=== PATIENT | female | born 1980 | race Caucasian/White ===

== ENCOUNTER 2017-05-24 04:12 | Emergency (ER) | payer BC, OTHER ==
[2017-05-24 04:36] VITALS: TEMP 97.7
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
[2017-05-24 06:48] VITALS: O2SAT 99
[2017-05-24 06:52] VITALS: BP 125/89
== END 2017-05-24 06:58 | disposition home or self-care (01) ==
LOC: ER 04:12
DX: O20.0 Threatened abortion (principal); O9A.311 Physical abuse complicating pregnancy, first trimester; Z3A.11 11 weeks gestation of pregnancy

== ENCOUNTER → 2017-05-27 | Outpatient (CLI) | payer BC, OTHER ==
--- NOTE | 2017-05-27 17:05 | US ---
EXAM DESCRIPTION: OB ,Early (0-14wks): Ultrasound. CLINICAL HISTORY: Positive test. By LMP, EGA 12 weeks, 0 days. ROGERS 12/09/2017. COMPARISON: None. TECHNIQUE: Transpelvic scanning through the urine filled bladder: 2-dimensional and Doppler modes. FINDINGS: Uterus: Well-defined. Not retroverted. Gestational sac: [place] not measured. AFV: Subjectively increased. pole: Mean CRL measurement 10.4 mm. EGA 7 weeks 1 day. Yolk sac: None seen. Subchorionic hemorrhage: Hypoechoic region in the anterior left inferior aspect abutting the chorion measures 10 x 11 x 5 mm. heart tones: Not detected. Cul-de-sac: No fluid. Comments: ROGERS based on ultrasound CRL measurement is 01/12/2018. Right ovary dimensions are 2.7 x 2.0 x 1.6 cm. Estimated volume. Normal Doppler blood flow. No dominant cyst. Small follicles. No adnexal mass or free fluid. Left ovary dimensions are 2.1 x 2.0 x 1.3 cm. Estimated volume. Normal Doppler blood flow. No dominant cyst. Small follicles. No adnexal mass or free fluid. IMPRESSION: 1. Single intrauterine gestation small for dates with increased amniotic fluid and no heart tones. Probable demise. Correlate with serial beta hCG measurements. Subchorionic hemorrhage inferior to the gestational sac. No yolk sac. 2. No adnexal mass or dominant cyst. Bilateral ovaries are unremarkable. Small follicles. No free fluid. Electronically signed by: Darwin Reis MD 05/27/2017 5:04 PM [employer] SOFTWARE DEV[employer]OPMENT [employer]
== END | disposition home or self-care (01) ==
LOC: US 08:50
PROVIDERS: ATTEND Family Medicine
DX: O26.849 Uterine size-date discrepancy, unspecified trimester (principal)